=== PATIENT | female | born 1995 | race Caucasian/White ===

== ENCOUNTER → 2020-09-02 | Outpatient (CLI) | payer OTHER ==
[~2020-09-02] MED LIST: COLACE100 MG PO; FLINTSTONES1 EAC1 PO; IBUPROFEN600 MG PO; IRON325 M1 PO; LORTAB 5-325 M1 EACH PO; MACROBID 100 M100 MG PO; PRILOSEC OTC20 MG PO
[2020-09-10 11:15] LABS: HBSAG SCREEN Negative (Negative); HEP A AB, IGM Negative (Negative); HEP B CORE AB, IGM Negative (Negative); HEP C VIRUS AB <0.1 (0.0-0.9); HEPATITIS B SURF AB QUANT 3.4 mIU/mL (Immunity>9.9); TETANUS ANTITOXOID IGG AB 1.97 IU/mL (<0.10)
== END ==
LOC: LAB 09:59
PROVIDERS: Dentist General Practice
DX: Z20.89 Contact with and (suspected) exposure to other communicable diseases (principal)
CPT/HCPCS: 36415; 80074; 86317; 87389